=== PATIENT | female | born 1975 | race Caucasian/White ===

== ENCOUNTER 2017-03-30 21:00 | Emergency (ER) | payer MEDICAID, OTHER ==
[~2017-03-30] VITALS: Ht 163.8 cm; Wt 151.8 kg
[2017-03-30 21:05] VITALS: Ht 163.8 cm; Wt 151.8 kg
[2017-03-30] MEDS ORDERED: HYDROCODONE/APAP (5/325) TAB PO ONE (22:30)
[2017-03-30] MEDS ORDERED: HYDR-906 PO (23:35)
--- NOTE | 2017-03-30 23:38 | ERD ---
ER Documentation Chief Complaint Date/Time DATE: 03/30/17 TIME: 23:36 Chief Complaint left knee pain HPI 41-year-old female complains of left-sided knee pain that started when she had turned in her home. Patient states that when she had a turning motion she had a large pop and complains of left medial knee pain. Pain is sharp, severe, nonradiating. It is worse with any leg extension, better with flexion. ROS All systems reviewed and are negative except as per history of present illness. Medications Home Meds Active Scripts Hydrocodone/Acetaminophen ([address] 5-325 Tablet) 1 Each Tablet, 1 TAB PO Q6H Y for PAIN, #20 TAB Prov:CAMERON AL PA-C 03/30/17 Allergies Allergies: Coded Allergies: No Known Allergy (Unverified , 03/30/17) PMhx/Soc History of Surgery: Yes ( X 3, RIGHT KNEE, CHOLECYSTECTOMY) Anesthesia Reaction: No Hx Neurological Disorder: No Hx Respiratory Disorders: No Hx Cardiac Disorders: No Hx Psychiatric Problems: No Hx Miscellaneous Medical Probl: No Hx Alcohol Use: No Hx Substance Use: No Hx Tobacco Use: Yes Smoking Status: Light tobacco smoker Physical Exam Vitals Vital Signs Date Time Temp Pulse Resp B/P Pulse Ox O2 Delivery O2 Flow Rate FiO2 03/30/17 21:05 98.5 66 18 129/60 99 Physical Exam General: Well-developed, well-nourished. The patient appears in no acute distress. HEENT: Head is normocephalic, atraumatic. No scleral icterus. Neck: Supple. Nontender. Lungs: Clear to auscultation. Normal air movement. Heart: Regular rate and rhythm. S1 and S2 are normal. No murmurs, gallops, or rubs. Abdomen: Nondistended. Extremities: Medial compartment swelling, questionable joint line tenderness medially. Patient is able to flex and extend the knee, there is tenderness to palpation at the medial aspect. Neurologic: Alert and oriented 3. No focal deficits. Normal speech and gait. Skin: Normal turgor. No rash or lesions. Results 24 hrs Current Medications Medications (Trade) Dose Ordered Sig/John Route PRN Reason Start Time Stop Time Status Last Admin Dose Admin Acetaminophen/ Hydrocodone Bitart ([address] (5/325)) 1 tab ONCE ONCE PO 03/30/17 22:30 03/30/17 22:31 DC 03/30/17 22:46 Procedures/MDM ED course: She was given [address] for pain. I have explained to the patient that she does not show any emergent limb threatening processes, that we may obtain an x-ray, however MRI may be done outpatient. MDM: 41-year-old female comes in with left knee injury, history of popping with swelling of the twisting is likely a meniscal injury. Suspect patient may have a meniscal injury versus a medial compartment ligament strain. She was placed in a knee immobilizer as a splint. At this time her radiographic imaging does not show any evidence of a fracture. She was given copies of the x-ray, she will be discharged home to be followed up with an orthopedist outpatient. Departure Diagnosis: Primary Impression: Knee pain Condition: Good Patient Instructions: Knee Sprain Referrals: YULIANA SILVA MD Additional Instructions: Call your primary care doctor TOMORROW for an appointment during the next 1-2 days.See the doctor sooner or return here if your condition worsens before your appointment time. CAMERON AL PA-C Mar 30, 2017 23:37
--- NOTE | 2017-03-31 00:22 | RADRPT ---
PROCEDURE: Left knee. CLINICAL INDICATION: Pain. TECHNIQUE: Three views including AP, lateral and oblique views of the left knee were obtained. T he images reviewed on a PACS workstation. COMPARISON: None. FINDINGS: There is no fracture, dislocation or bone destruction. There is no significant joint space narrowin g or effusion. Bone mineralization is within normal limits. There is no radiopaque foreign body or abnormal calcification. IMPRESSION: No evidence of fracture. .Darwin Bush MD, Date Time Electronically viewed and signed by .Darwin Bush MD, on 03/31/2017 00:22 .T/
== END 2017-03-31 00:01 | disposition home or self-care (01) ==
LOC: FTE 21:00
DX: M25.562 Pain in left knee (principal); F17.210 Nicotine dependence, cigarettes, uncomplicated
CPT/HCPCS: 29505; 73562; Z7502; Z7610